=== PATIENT | female | born 1980 | race Caucasian/White ===

== ENCOUNTER 2017-10-03 13:53 | Emergency (ER) | payer BC, MEDICAID ==
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
--- NOTE | 2017-10-04 09:10 | CR ---
FOOT RIGHT 3 views CLINICAL HISTORY:Fall FINDINGS:No fracture or osseous lesion is identified. There appears to be some soft tissue swelling i n the forefoot. Impression: No fracture Soft tissue swelling of the forefoot
== END 2017-10-03 16:21 | disposition home or self-care (01) ==
LOC: JP.ED 13:53
DX: S00.03XA Contusion of scalp, initial encounter (principal); S93.601A Unspecified sprain of right foot, initial encounter; F17.210 Nicotine dependence, cigarettes, uncomplicated; Z88.5 Allergy status to narcotic agent; Y04.8XXA Assault by other bodily force, initial encounter
CPT/HCPCS: 73630-26-RT; 73630-RT; 99284

== ENCOUNTER 2020-06-26 08:09 | Day surgery (SDC) | payer BC, MEDICAID ==
[2020-06-26] MEDS ORDERED: fentaNYL 100 MCG/2 ML SDV ONE (08:20)
[2020-06-26] MEDS ORDERED: Midazolam 1 MG/ML 2 ML SDV ONE (08:20)
[2020-06-26] MEDS ORDERED: Propofol 200 MG/20 ML SDV ONE (08:20)
[2020-06-26] MEDS ORDERED: Dextrose 5%-Lactated Ringers 1,000 ML IV SCH (08:45)
[2020-06-26] MEDS ORDERED: Glycopyrrolate 0.2 MG/ML 2 ML SDV IVPUSH ONE (09:30)
--- NOTE | 2020-07-07 12:12 | OR ---
DATE OF PROCEDURE: 06/26/2020 SURGEON: Danilo Argueta MD PREOPERATIVE DIAGNOSIS: Gastroesophageal reflux disease. POSTOPERATIVE DIAGNOSES: 1. Moderate-sized hiatal hernia associated with active gastroesophageal reflux disease. 2. Mild antral gastritis and duodenitis. OPERATIVE PROCEDURE: Esophagogastroduodenoscopy with: 1. Biopsies of esophagogastric junction for histologic evaluation. 2. Biopsies of antrum for CLOtest. ANESTHESIA: IV sedation. INDICATION FOR PROCEDURE: This is a 39-year-old female presenting with increasingly symptomatic gastroesophageal reflux disease. She presently is on Protonix 40 mg daily. The plan is to proceed with upper GI endoscopy with biopsies as indicated. Potential risks including bleeding and perforation were discussed, and the patient wishes to proceed. DETAILS OF PROCEDURE: The patient was taken to the operating room and placed in a left lateral decubitus position. IV sedation was administered, after which the upper GI endoscope was passed orally through the length of the esophagus into the stomach with retroflexion view of the fundus, thereafter through the pyloric channel and into the proximal duodenum. Findings included normal hypopharynx, larynx, and upper esophageal sphincter. In the esophageal body, likewise there was no significant pathology. However, as one passed into the area of the distal esophagus, the patient had a moderate-sized roughly 3 cm hiatal hernia with quite active gastroesophageal reflux disease with the distal esophageal mucosa being friable and showing some focal areas of linear ulceration. There was no plaquing or stricturing suggestive of neoplastic change. Within the stomach, there was some patchy redness in the antrum and proximal duodenum without erosions or ulcers. At this point, biopsies were obtained from the antrum and sent for CLOtest for H pylori. Multiple biopsies were then obtained from esophagogastric junction and sent for histologic evaluation. No bleeding from the biopsy sites was seen and the scope was then withdrawn and the procedure then concluded. We will await the pathology report and see the patient back on 07/02/2020 to discuss the treatment options. Danilo Argueta MD /[id number]
== END 2020-06-26 11:04 | disposition home or self-care (01) ==
LOC: JP.SDS 08:09
PROVIDERS: ATTEND Surgery
DX: K20.0 Eosinophilic esophagitis (principal); K22.8 Other specified diseases of esophagus; K44.9 Diaphragmatic hernia without obstruction or gangrene; K29.70 Gastritis, unspecified, without bleeding; K29.80 Duodenitis without bleeding; E66.9 Obesity, unspecified; Z68.39 Body mass index [BMI] 39.0-39.9, adult; F17.210 Nicotine dependence, cigarettes, uncomplicated; Z88.6 Allergy status to analgesic agent; Z88.8 Allergy status to other drugs, medicaments and biological substances
CPT/HCPCS: 43239; 87081; J2250; J2704; J3010; J3490; J7121

== ENCOUNTER 2022-12-15 09:02 | Day surgery (SDC) | payer MEDICAID ==
[2022-12-15] MEDS ORDERED: Lactated Ringers 1,000 ML IV SCH (09:45)
[2022-12-15] MEDS ORDERED: Midazolam 1 MG/ML 2 ML SDV ONE (10:38)
[2022-12-15] MEDS ORDERED: fentaNYL 50 MCG/ML SDV ONE (10:38)
[2022-12-15] MEDS ORDERED: Propofol 200 MG/20 ML SDV ONE ×2 (10:38→12:28)
[2022-12-15 13:33] VITALS: BP 116/72; PULSE 68
== END 2022-12-15 13:43 | disposition home or self-care (01) ==
LOC: JP.SDS 09:02
PROVIDERS: ATTEND Student in an Organized Health Care Education/Training Program
DX: K21.9 Gastro-esophageal reflux disease without esophagitis (principal); K26.9 Duodenal ulcer, unspecified as acute or chronic, without hemorrhage or perforation; K44.9 Diaphragmatic hernia without obstruction or gangrene; K29.50 Unspecified chronic gastritis without bleeding; K31.A0 Gastric intestinal metaplasia, unspecified; K21.00 Gastro-esophageal reflux disease with esophagitis, without bleeding; K22.70 Barrett's esophagus without dysplasia; F17.200 Nicotine dependence, unspecified, uncomplicated
CPT/HCPCS: 88305; J2250; J2704; J3010; J7120

== ENCOUNTER 2023-03-31 07:44 | Day surgery (SDC) | payer MEDICAID ==
[~2023-03-31 07:44] MED LIST: Lactated Ringers 1,000 ML IV SCH; Midazolam 1 MG/ML 2 ML SDV ONE; Propofol 200 MG/20 ML SDV ONE; fentaNYL 100 MCG/2 ML SDV ONE
[2023-03-31] MEDS ORDERED: Sodium Chloride 0.9% 1,000 ML IV SCH (08:30)
[2023-03-31] MEDS ORDERED: Alum Hydrox/Mag Hydrox/Simeth 360 ML, Lidocaine 2% 60 ML PO PRN ×2 (09:00)
[2023-03-31] MEDS ORDERED: Propofol 200 MG/20 ML SDV ONE (10:21)
[2023-03-31] MEDS ORDERED: Acetylcysteine 600 MG, Water For Injection,Sterile 57 ML ONE ×2 (10:30)
== END 2023-03-31 11:41 | disposition home or self-care (01) ==
LOC: JP.SDS 07:44
PROVIDERS: ATTEND Surgery
DX: K22.70 Barrett's esophagus without dysplasia (principal); K21.9 Gastro-esophageal reflux disease without esophagitis; F32.A Depression, unspecified; Z79.899 Other long term (current) drug therapy; Z88.5 Allergy status to narcotic agent
CPT/HCPCS: 43270; A9270; C1886; J2250; J2704; J3010; J7030

== ENCOUNTER 2023-07-07 08:06 | Day surgery (SDC) | payer MEDICAID ==
[2023-07-07] MEDS: Sodium Chloride 0.9% 1,000 ML IV SCH (08:54)
[2023-07-07] MEDS ORDERED: Acetylcysteine 600 MG, Water For Injection,Sterile 57 ML ONE (09:30)
[2023-07-07] MEDS ORDERED: Propofol 200 MG/20 ML SDV ONE (09:56)
[2023-07-07] MEDS ORDERED: fentaNYL 50 MCG/ML SDV ONE (09:56)
[2023-07-07] MEDS ORDERED: Midazolam 1 MG/ML 2 ML SDV ONE (09:56)
[2023-07-07] MEDS: Clindamycin in 0.9 % Sod Chlor 900 MG in Premix Bag 1 BAG IV ONE (10:41)
[2023-07-07] MEDS: metroNIDAZOLE/Normal Saline 500 MG in Premix Bag 1 BAG IV ONE (10:59)
[2023-07-07] MEDS: Albuterol/Ipratropium 3.0-0.5 MG/3 ML Neb Soln NEB ONE (11:25)
[2023-07-07] MEDS: Benzocaine/Cetylpyridinium/Menthol Lozenge MUCMEM PRN (11:57)
== END 2023-07-07 12:51 | disposition home or self-care (01) ==
LOC: JP.SDS 08:06
PROVIDERS: ATTEND Surgery
DX: K22.70 Barrett's esophagus without dysplasia (principal); K29.50 Unspecified chronic gastritis without bleeding; K21.9 Gastro-esophageal reflux disease without esophagitis; F32.A Depression, unspecified; E66.9 Obesity, unspecified
CPT/HCPCS: 43239; 43270; 94640; C1713; C1886; J0736; J1836; J2250; J2704; J3010; J7030; 88305; J7620

== ENCOUNTER 2023-10-06 07:59 | Day surgery (SDC) | payer MEDICAID ==
[2023-10-06] MEDS ORDERED: fentaNYL 50 MCG/ML SDV ONE (08:13)
[2023-10-06] MEDS ORDERED: Propofol 200 MG/20 ML SDV ONE (08:13)
[2023-10-06] MEDS ORDERED: Midazolam 1 MG/ML 2 ML SDV ONE (08:13)
[2023-10-06] MEDS: Sodium Chloride 0.9% 1,000 ML IV SCH (08:47)
[2023-10-06] MEDS: Acetylcysteine 600 MG, Water For Injection,Sterile 57 ML ONE (10:14)
[2023-10-06] MEDS: Alum Hydrox/Mag Hydrox/Simeth 360 ML, Lidocaine 2% 60 ML PO SCH (10:57)
== END 2023-10-06 11:25 | disposition home or self-care (01) ==
LOC: JP.SDS 07:59
PROVIDERS: ATTEND Surgery
DX: K22.70 Barrett's esophagus without dysplasia (principal); K21.9 Gastro-esophageal reflux disease without esophagitis; J45.909 Unspecified asthma, uncomplicated
CPT/HCPCS: 00731-QZ; A9270-GY; C1713; C1886; J2250; J2704; J3010; J7030

== ENCOUNTER 2023-11-01 06:08 | Day surgery (SDC) | payer MEDICAID ==
[2023-11-01 06:37] LABS: HEMATOCRIT 43.9 % (34.3-46.0); HEMOGLOBIN 14.9 g/dL (11.2-15.5); MEAN CORPUSCULAR HEMOGLOBIN 28.2 pg (31.6-35.5); MEAN CORPUSCULAR HGB CONC 33.9 g/dL (31.6-35.5); MEAN CORPUSCULAR VOLUME 83.1 fL (81.4-99.0); RED BLOOD CELL COUNT 5.28 M/uL (3.77-5.24); WHITE BLOOD CELL COUNT,WBC 11.6 K/uL (3.2-11.0)
[2023-11-01 06:58] LABS: ALANINE AMINOTRANSFERASE,ALT 34 U/L (12-78); ALBUMIN 3.7 g/dL (3.4-5.0); ALKALINE PHOSPHATASE 76 U/L (46-116); ASPARTATE AMNIOTRANSFERASE,AST 18 U/L (15-37); BILIRUBIN TOTAL 0.3 mg/dL (0.2-1.0); BLOOD UREA NITROGEN,BUN 16 mg/dL (7-18); CALCIUM 9.3 mg/dL (8.5-10.1); CARBON DIOXIDE,CO2 28 mmol/L (21-32); CHLORIDE,CL 104 mmol/L (100-108); CREATININE 0.8 mg/dL (0.6-1.0); EST CRCL DRUG DOSING (CG) 69.13 mL/min; ESTIMATED GFR 94 mL/min (>60); GLUCOSE RANDOM 100 mg/dL (74-106); POTASSIUM,K 4.4 mmol/L (3.6-5.2); PROTEIN TOTAL,TP 7.5 g/dL (6.4-8.2); SODIUM,NA 141 mmol/L (140-148)
[2023-11-01] MEDS ORDERED: Dexamethasone 4 MG/ML SDV ONE (07:06)
[2023-11-01] MEDS ORDERED: Succinylcholine 200 MG/10 ML MDV ONE (07:06)
[2023-11-01] MEDS ORDERED: Glycopyrrolate 0.2 MG/ML 5 ML MDV ONE (07:06)
[2023-11-01] MEDS ORDERED: Rocuronium 50 MG/5 ML Vial ONE (07:06)
[2023-11-01] MEDS ORDERED: Propofol 200 MG/20 ML SDV ONE (07:06)
[2023-11-01] MEDS ORDERED: Ondansetron 4 MG/2 ML SDV ONE (07:06)
[2023-11-01] MEDS ORDERED: Neostigmine Methylsulfate 10 MG/10 ML MDV ONE (07:06)
[2023-11-01] MEDS: Indocyanine Green 25 MG SDV IV ONE (07:07)
[2023-11-01] MEDS ORDERED: fentaNYL 250 MCG/5 ML SDV ONE (07:07)
[2023-11-01] MEDS: Sodium Chloride 0.9% 1,000 ML IV SCH (07:12)
[2023-11-01] MEDS: metroNIDAZOLE/Normal Saline 500 MG in Premix Bag 1 BAG IV ONE (07:46)
[2023-11-01] MEDS: ceFAZolin 2 GM in Premix Bag 1 BAG IV ONE (07:55)
[2023-11-01] MEDS ORDERED: Ketorolac 30 MG/ML SDV ONE ×2 (08:23)
[2023-11-01] MEDS: Ropivacaine 40 ML, dexAMETHasone 8 MG, EPINEPHrine 0.4 MG, Sodium Chloride 0.9% 37.6 ML NERVRT SCH (08:35)
[2023-11-01] MEDS ORDERED: fentaNYL 100 MCG/2 ML SDV ONE (08:36)
[2023-11-01] MEDS: Bupivacaine 0.5% 50 ML MDV ONE (08:40)
[2023-11-01] MEDS: Lidocaine 1% with EPINEPHrine 1:100,000 50 ML MDV ONE (08:41)
[2023-11-01] MEDS ORDERED: Acetaminophen/HYDROcodone 325-5 MG Tab PO PRN (10:16)
[2023-11-01] MEDS: Ondansetron 4 MG/2 ML SDV IVPUSH PRN (10:43)
[2023-11-01] MEDS: traMADol 50 MG Tab PO PRN (11:20)
[2023-11-01] MEDS: Scopalamine 1mg/3day Transdermal Patch TOP ONE (11:24)
== END 2023-11-01 12:45 | disposition home or self-care (01) ==
LOC: JP.SDS 06:08
PROVIDERS: ATTEND Surgery
DX: K81.1 Chronic cholecystitis (principal); F32.A Depression, unspecified; E66.3 Overweight; K21.9 Gastro-esophageal reflux disease without esophagitis; D50.0 Iron deficiency anemia secondary to blood loss (chronic); F17.210 Nicotine dependence, cigarettes, uncomplicated; Z79.899 Other long term (current) drug therapy; Z88.5 Allergy status to narcotic agent; Z88.8 Allergy status to other drugs, medicaments and biological substances; Z68.37 Body mass index [BMI] 37.0-37.9, adult
CPT/HCPCS: 00790-QZ; 36415; 80053; 84703; 85027; 88304; A9270-GY; J0171; J0330; J0665; J0690; J1100; J1596; J1836; J1885; J2405; J2704; J2710; J2795; J3010; J3490; J7030

== ENCOUNTER 2024-01-11 07:41 | Day surgery (SDC) | payer MEDICAID ==
[~2024-01-11 07:41] MED LIST changes: -Lactated Ringers 1,000 ML IV SCH; -fentaNYL 100 MCG/2 ML SDV ONE; +fentaNYL 50 MCG/ML SDV ONE
[2024-01-11] MEDS: Sodium Chloride 0.9% 1,000 ML IV SCH (08:22)
[2024-01-11] MEDS: Alum Hydrox/Mag Hydrox/Simeth 360 ML, Lidocaine 2% 60 ML PO PRN (09:05)
[2024-01-11] MEDS ORDERED: Propofol 200 MG/20 ML SDV ONE (09:48)
== END 2024-01-11 10:50 | disposition home or self-care (01) ==
LOC: JP.SDS 07:41
PROVIDERS: ATTEND Surgery
DX: K22.70 Barrett's esophagus without dysplasia (principal); K21.9 Gastro-esophageal reflux disease without esophagitis
CPT/HCPCS: 43270; A9270; C1713; C1886; J2250; J2704; J3010; J7030; 00731-QZ